=== PATIENT | female | born 1980 | race Caucasian/White ===

== ENCOUNTER 2019-06-02 01:05 | Inpatient (IN) | payer MEDICAID ==
[~2019-06-02] VITALS: Ht 157.5 cm; Wt 74.7 kg
[~2019-06-02 01:05] MED LIST: PREN-19 PO
[2019-06-02 01:29] VITALS: BP 107/67; PULSE 81; RESP 18; Ht 157.5 cm; Wt 74.7 kg
[2019-06-02] MEDS ORDERED: MISOPROSTOL 200 MCG TAB PR PRN ×2 (02:00→08:00)
[2019-06-02] MEDS ORDERED: BUTORPHANOL 2 MG INJ IV PRN ×2 (02:00)
[2019-06-02] MEDS ORDERED: OXYTOCIN 30 UNITS/LR 500 ML IV PRN ×2 (02:00→08:00)
[2019-06-02] MEDS ORDERED: OXYTOCIN 30 UNITS/LR 500 ML IV SCH ×4 (02:00→07:51)
[2019-06-02] MEDS ORDERED: CARBOPROST 250 MCG INJ IM PRN ×2 (02:00→08:00)
[2019-06-02] MEDS ORDERED: IBUPROFEN 600 MG TAB PO PRN (02:00)
[2019-06-02] MEDS ORDERED: LIDOCAINE 1% (MPF) 30 ML INJ INJ PRN (02:00)
[2019-06-02] MEDS ORDERED: AMPICILLIN 2 GM/NS (PMX) 100 ML IV ONE (02:00)
[2019-06-02] MEDS ORDERED: METHYLERGONOVINE 0.2 MG INJ IM PRN ×2 (02:00→08:00)
[2019-06-02] MEDS: LACTATED RINGER'S 1,000 ML IV SCH ×2 (02:21→03:33)
[2019-06-02] MEDS ORDERED: FENTAnyl 2MCG/ML-ROPIV 0.2% 100 ML ONE (02:53)
[2019-06-02] MEDS ORDERED: FENTAnyl 2MCG/ML-ROPIV 0.2% 100 ML BAG EPI SCH (03:00)
[2019-06-02] MEDS ORDERED: NALOXONE (0.4 MG/ML) INJ IV PRN (03:00)
[2019-06-02] MEDS ORDERED: AMPICILLIN 1 GM/NS (PMX) 50 ML IV SCH (06:00)
[2019-06-02] MEDS ORDERED: LACTATED RINGER'S 1,000 ML IV* SCH (07:51)
[2019-06-02] MEDS ORDERED: LANOLIN HPA 1 PKT TOP PRN (08:00)
[2019-06-02] MEDS ORDERED: HYDROCODONE/APAP (5/325) TAB PO PRN (08:00)
[2019-06-02] MEDS ORDERED: BENZOCAINE 20% 56 ML SPRAY TOP PRN (08:00)
[2019-06-02 09:30] VITALS: BP 105/61; PULSE 78; RESP 16
[2019-06-02 10:00] VITALS: BP 100/53; PULSE 85; RESP 16
[2019-06-02] MEDS: IBUPROFEN 600 MG TAB PO SCH ×3 (12:54→23:47)
[2019-06-02 16:00] VITALS: BP 89/57; PULSE 64; RESP 18
[2019-06-02 19:45] VITALS: BP 91/56; PULSE 83; RESP 19
[2019-06-03 03:10] VITALS: BP 104/52; PULSE 75; RESP 20
[2019-06-03] MEDS: IBUPROFEN 600 MG TAB PO SCH ×4 (05:27→23:20)
[2019-06-03 08:15] VITALS: BP 92/52; PULSE 67; RESP 16
[2019-06-03 15:50] VITALS: BP 101/60; PULSE 73; RESP 16
[2019-06-03 19:50] VITALS: BP 110/62; PULSE 71; RESP 16
[2019-06-03] MEDS: GUAIFENESIN/CODEINE 5ML CUP PO PRN (21:58)
[2019-06-04 03:35] VITALS: BP 90/50; PULSE 61; RESP 19
[2019-06-04] MEDS: IBUPROFEN 600 MG TAB PO SCH ×3 (05:30→17:34)
[2019-06-04 08:20] VITALS: BP 95/51; PULSE 58; RESP 17
[2019-06-04] MEDS ORDERED: DIPHTH/TET/ACEL PERTUSS (ADULT) 0.5 ML VIAL IM* ONE (09:00)
[2019-06-04] MEDS: GUAIFENESIN/CODEINE 5ML CUP PO PRN ×2 (09:40→14:25)
[2019-06-04 17:08] VITALS: BP 88/55; PULSE 86; RESP 18
== END 2019-06-04 19:10 | disposition home or self-care (01) | DRG 807 ==
LOC: OBT 01:05 → L-D 01:09 → OBT 01:45 → L-D 01:59 → PP1 08:54
PROVIDERS: ADMIT Obstetrics & Gynecology; ATTEND Obstetrics & Gynecology
PROC: 10D07Z6 Extraction of Products of Conception, Vacuum, Via Natural or Artificial Opening (ICD-10-PCS; principal; 2019-06-02)
PROC: 0KQM0ZZ Repair Perineum Muscle, Open Approach (ICD-10-PCS; 2019-06-02)
DX: O76 Abnormality in fetal heart rate and rhythm complicating labor and delivery (principal); Z37.0 Single live birth; O70.1 Second degree perineal laceration during delivery; Z3A.37 37 weeks gestation of pregnancy
CPT/HCPCS: 62322; 85025; 85610; 85730; 86592; 86850; 86900; 86901; 87340; G0463; J0290; J2590; J3010; J7120